=== PATIENT | male | born 1980 | race Caucasian/White ===

== ENCOUNTER 2024-12-01 18:21 | Emergency (ER) | payer MEDICARE, MEDICAID ==
[~2024-12-01] VITALS: Ht 172.7 cm; Wt 76.8 kg
[2024-12-01 18:30] VITALS: BP 154/106; PULSE 104; RESP 12; TEMP 97.8; O2SAT 100
[2024-12-01] MEDS ORDERED: ONDA-104 PO (18:39)
[2024-12-01] MEDS ORDERED: TIZA-211 PO (18:39)
[2024-12-01] MEDS ORDERED: LIDO700A30 TP (18:39)
[2024-12-01] MEDS ORDERED: OXYC10TA59 PO (18:39)
[2024-12-01] MEDS ORDERED: DEXT25CP PO (18:39)
[2024-12-01] MEDS ORDERED: DULO30CA62 PO (18:39)
== END 2024-12-01 21:26 | disposition left against medical advice (07) ==
LOC: EMS 18:21
DX: Z76.0 Encounter for issue of repeat prescription (principal); F90.9 Attention-deficit hyperactivity disorder, unspecified type; G82.20 Paraplegia, unspecified; Z88.5 Allergy status to narcotic agent; Z88.8 Allergy status to other drugs, medicaments and biological substances; Z79.899 Other long term (current) drug therapy
CPT/HCPCS: 99281; Z7502